=== PATIENT | male | born 1965 | race Caucasian/White ===

== ENCOUNTER 2017-06-17 05:52 | Emergency (ER) | payer MEDICAID, OTHER ==
[~2017-06-17] VITALS: Ht 177.8 cm; Wt 86.0 kg
[~2017-06-17 05:52] MED LIST: LISI-662 PO; ZOLP10TA2 PO
[2017-06-17] MEDS ORDERED: CLON1TAB4 PO (05:59)
[2017-06-17 06:26] LABS: APPEARANCE,URINE TURBID (CLEAR); GLUCOSE, URINE (UA) 100 mg/dL (NEGATIVE); KETONES,URINE 40 mg/dL (NEGATIVE); OCCULT BLOOD,URINE LARGE (NEGATIVE); PROTEIN,URINE SEE CONFIRM (NEGATIVE)
[2017-06-17 06:42] LABS: ADD UA MICROSCOPIC YES; LEUKOCYTE ESTERASE ,URINE SMALL (NEGATIVE); RBC,URINE Full Field /HPF (0-2); SULFOSALICYLIC ACID,URINE 3+ (Negative)
[2017-06-17 09:04] VITALS: BP 153/100
== END 2017-06-17 09:06 | disposition home or self-care (01) ==
LOC: EMS 05:53
DX: R31.9 Hematuria, unspecified (principal)
CPT/HCPCS: 74176; 87086; 99285

== ENCOUNTER 2017-07-28 06:19 | Emergency (ER) | payer OTHER ==
[~2017-07-28] VITALS: Ht 177.8 cm; Wt 86.0 kg
[~2017-07-28 06:19] MED LIST changes: +CLON1TAB4 PO; -LISI-662 PO; -ZOLP10TA2 PO
[2017-07-28 06:33] LABS: GLUCOSE,POINT OF CARE 220 MG/DL (70-110)
[2017-07-28 06:51] LABS: APPEARANCE,URINE CLOUDY (CLEAR); GLUCOSE, URINE (UA) NEGATIVE (NEGATIVE); KETONES,URINE NEGATIVE (NEGATIVE); LEUKOCYTE ESTERASE ,URINE TRACE (NEGATIVE); OCCULT BLOOD,URINE LARGE (NEGATIVE); PH,URINE 5.5 (5.0-8.0); PROTEIN,URINE SEE CONFIRM (NEGATIVE)
[2017-07-28 07:01] LABS: ADD UA MICROSCOPIC YES
[2017-07-28 07:02] LABS: RBC,URINE >100 /HPF (0-2); SULFOSALICYLIC ACID,URINE 2+ (Negative); WBC,URINE 0-2 /HPF (0-5)
[2017-07-28 08:54] VITALS: BP 140/90
== END 2017-07-28 08:58 | disposition home or self-care (01) ==
LOC: EMS 06:20
DX: R31.9 Hematuria, unspecified (principal); R11.2 Nausea with vomiting, unspecified; R19.7 Diarrhea, unspecified
CPT/HCPCS: 82962; 87086; 99284

== ENCOUNTER 2017-12-25 05:06 | Emergency (ER) | payer OTHER ==
[~2017-12-25] VITALS: Ht 177.8 cm; Wt 81.8 kg
[2017-12-25 05:23] LABS: GLUCOSE,POINT OF CARE 131 MG/DL (70-110)
[2017-12-25 06:24] VITALS: BP 118/76
== END 2017-12-25 06:28 | disposition home or self-care (01) ==
LOC: EMS 05:07
DX: L40.9 Psoriasis, unspecified (principal); M13.0 Polyarthritis, unspecified; E11.9 Type 2 diabetes mellitus without complications; Z88.6 Allergy status to analgesic agent
CPT/HCPCS: 82962; 99283

== ENCOUNTER 2018-01-21 12:50 | Emergency (ER) | payer OTHER ==
[~2018-01-21] VITALS: Ht 177.8 cm; Wt 80.9 kg
[2018-01-21 13:52] LABS: GLUCOSE,POINT OF CARE 169 MG/DL (70-110)
[2018-01-21 14:15] VITALS: BP 125/84
== END 2018-01-21 14:24 | disposition home or self-care (01) ==
LOC: EMS 12:51
DX: L40.9 Psoriasis, unspecified (principal); E11.9 Type 2 diabetes mellitus without complications; M19.90 Unspecified osteoarthritis, unspecified site; Z88.6 Allergy status to analgesic agent
CPT/HCPCS: 82962; 99283

== ENCOUNTER 2018-03-18 09:34 | Emergency (ER) | payer OTHER ==
[~2018-03-18] VITALS: Ht 180.3 cm; Wt 85.5 kg
[2018-03-18 09:52] VITALS: BP 139/89
[2018-03-18] MEDS ORDERED: LISI-662 PO (09:56)
[2018-03-18 10:02] LABS: GLUCOSE,POINT OF CARE 302 MG/DL (70-110)
== END 2018-03-18 10:31 | disposition home or self-care (01) ==
LOC: EMS 09:35
DX: E11.65 Type 2 diabetes mellitus with hyperglycemia (principal); L40.9 Psoriasis, unspecified; I10 Essential (primary) hypertension; Z91.19 Patient's noncompliance with other medical treatment and regimen; Z76.0 Encounter for issue of repeat prescription; Z88.6 Allergy status to analgesic agent
CPT/HCPCS: 99283

== ENCOUNTER 2018-04-14 03:52 | Emergency (ER) | payer OTHER ==
[~2018-04-14] VITALS: Ht 177.8 cm; Wt 81.8 kg
[~2018-04-14 03:52] MED LIST changes: -CLON1TAB4 PO; +CLON1TAB5 PO; +LISI-662 PO
[2018-04-14] MEDS ORDERED: METF-444 PO (04:22)
[2018-04-14] MEDS ORDERED: MELO-108 PO (04:22)
[2018-04-14 04:47] VITALS: BP 111/78
[2018-04-14] MEDS ORDERED: PredniSONE 20 MG TABLET PO ONE (05:45)
== END 2018-04-14 05:52 | disposition home or self-care (01) ==
LOC: EMS 03:56
DX: L40.50 Arthropathic psoriasis, unspecified (principal); E11.9 Type 2 diabetes mellitus without complications; I10 Essential (primary) hypertension; Z88.6 Allergy status to analgesic agent; Z88.8 Allergy status to other drugs, medicaments and biological substances
CPT/HCPCS: 99283; J7512

== ENCOUNTER 2018-05-15 06:47 | Emergency (ER) | payer OTHER ==
[~2018-05-15] VITALS: Ht 177.8 cm; Wt 82.3 kg
[~2018-05-15 06:47] MED LIST changes: +MELO-108 PO; +METF-444 PO
[2018-05-15 07:08] LABS: GLUCOSE,POINT OF CARE 278 MG/DL (70-110)
[2018-05-15 09:29] VITALS: BP 127/78
== END 2018-05-15 09:31 | disposition home or self-care (01) ==
LOC: EMS 06:48
DX: L40.9 Psoriasis, unspecified (principal); E11.65 Type 2 diabetes mellitus with hyperglycemia; I10 Essential (primary) hypertension; Z88.6 Allergy status to analgesic agent; Z88.8 Allergy status to other drugs, medicaments and biological substances
CPT/HCPCS: 99283

== ENCOUNTER 2018-05-28 05:19 | Emergency (ER) | payer OTHER ==
[~2018-05-28] VITALS: Ht 177.8 cm; Wt 82.3 kg
[~2018-05-28 05:19] MED LIST changes: -CLON1TAB5 PO; -MELO-108 PO
[2018-05-28 05:29] LABS: GLUCOSE,POINT OF CARE 322 MG/DL (70-110)
[2018-05-28 06:25] VITALS: BP 124/70
== END 2018-05-28 06:35 | disposition home or self-care (01) ==
LOC: EMS 05:19
DX: L40.9 Psoriasis, unspecified (principal); M25.561 Pain in right knee; M25.562 Pain in left knee; E11.9 Type 2 diabetes mellitus without complications; I10 Essential (primary) hypertension; M19.90 Unspecified osteoarthritis, unspecified site; Z90.49 Acquired absence of other specified parts of digestive tract; Z79.899 Other long term (current) drug therapy; Z79.84 Long term (current) use of oral hypoglycemic drugs; Z88.6 Allergy status to analgesic agent; Z88.8 Allergy status to other drugs, medicaments and biological substances
CPT/HCPCS: 99283

== ENCOUNTER 2018-07-11 08:49 | Emergency (ER) | payer OTHER ==
[~2018-07-11] VITALS: Ht 177.8 cm; Wt 80.5 kg
[2018-07-11 08:51] VITALS: BP 155/85
[2018-07-11] MEDS ORDERED: PredniSONE 20 MG TABLET PO ONE (09:15)
[2018-07-11] MEDS ORDERED: MetFORMIN HCL 500 MG TABLET PO ONE (09:15)
== END 2018-07-11 10:35 | disposition home or self-care (01) ==
LOC: EMS 08:50
DX: L40.9 Psoriasis, unspecified (principal); E11.65 Type 2 diabetes mellitus with hyperglycemia; I10 Essential (primary) hypertension; Z88.6 Allergy status to analgesic agent; Z88.8 Allergy status to other drugs, medicaments and biological substances; Z79.84 Long term (current) use of oral hypoglycemic drugs
CPT/HCPCS: 82962; 99283; J7512

== ENCOUNTER 2018-08-11 08:30 | Emergency (ER) | payer OTHER ==
[~2018-08-11] VITALS: Ht 177.8 cm; Wt 84.1 kg
[2018-08-11] MEDS ORDERED: PRED20 PO (08:42)
[2018-08-11] MEDS ORDERED: MetFORMIN HCL 500 MG TABLET PO ONE (09:30)
[2018-08-11] MEDS ORDERED: PredniSONE 20 MG TABLET PO ONE (09:30)
[2018-08-11 09:39] VITALS: BP 140/78
[2018-08-12 09:44] LABS: GLUCOSE,POINT OF CARE 408 MG/DL (70-110)
== END 2018-08-11 09:53 | disposition home or self-care (01) ==
LOC: EMS 08:46
DX: L40.9 Psoriasis, unspecified (principal); I10 Essential (primary) hypertension; E11.65 Type 2 diabetes mellitus with hyperglycemia; Z88.6 Allergy status to analgesic agent; Z88.8 Allergy status to other drugs, medicaments and biological substances; Z79.84 Long term (current) use of oral hypoglycemic drugs
CPT/HCPCS: 82962; 99283; J7512

== ENCOUNTER 2018-09-18 03:43 | Emergency (ER) | payer OTHER ==
[~2018-09-18] VITALS: Ht 177.8 cm; Wt 80.5 kg
[~2018-09-18 03:43] MED LIST changes: +PRED20 PO
[2018-09-18] MEDS ORDERED: CLON1 PO (03:56)
[2018-09-18 03:58] LABS: GLUCOSE,POINT OF CARE 331 MG/DL (70-110)
[2018-09-18 04:37] VITALS: BP 145/88
== END 2018-09-18 04:56 | disposition home or self-care (01) ==
LOC: EMS 03:44
DX: G47.00 Insomnia, unspecified (principal); E11.9 Type 2 diabetes mellitus without complications; I10 Essential (primary) hypertension; Z90.49 Acquired absence of other specified parts of digestive tract; Z88.6 Allergy status to analgesic agent; Z88.8 Allergy status to other drugs, medicaments and biological substances; Z79.84 Long term (current) use of oral hypoglycemic drugs; Z79.899 Other long term (current) drug therapy

== ENCOUNTER 2018-09-22 14:43 | Emergency (ER) | payer OTHER ==
[~2018-09-22] VITALS: Ht 175.3 cm; Wt 83.2 kg
[~2018-09-22 14:43] MED LIST changes: +CLON1 PO
[2018-09-22 15:14] LABS: GLUCOSE,POINT OF CARE 343 MG/DL (70-110)
[2018-09-22 16:02] VITALS: BP 157/93
== END 2018-09-22 16:18 | disposition home or self-care (01) ==
LOC: EMS 14:44
DX: L40.9 Psoriasis, unspecified (principal); I10 Essential (primary) hypertension; E11.9 Type 2 diabetes mellitus without complications; Z88.6 Allergy status to analgesic agent; Z88.8 Allergy status to other drugs, medicaments and biological substances